=== PATIENT | female | born 1990 | race Caucasian/White ===

== ENCOUNTER 2021-01-05 17:29 | Emergency (ER) | payer OTHER ==
[2021-01-05 18:35] LABS: BASOPHIL 0.5 % (0-2); BILIRUBIN NEGATIVE (NEGATIVE); BLOOD NEGATIVE Ery/uL (NEGATIVE); CLARITY CLEAR (CLEAR); COLOR YELLOW (YELLOW); EOSINOPHIL 1.4 % (0-5); GLUCOSE (U) NORMAL (NORMAL); HCT 38.9 % (37.0-47.0); HGB 12.2 g/dl (12.5-16.0); LEUKOCYTES NEGATIVE Leu/uL (NEGATIVE); LYMPHOCYTE 25.2 % (15-48); MCH 26.8 pg (25.0-31.0); MCHC 31.4 g/dL (32.0-36.0); MCV 85.3 fL (78.0-100.0); MONOCYTE 5.4 % (0-12); MPV 9.8 fL (6.0-9.5); NEUTROPHIL 66.9 % (41-80); NITRITE NEGATIVE (NEGATIVE); NRBC 0; PLT 400 K/uL (150-400); PROTEIN NEGATIVE (NEGATIVE); RBC 4.56 M/uL (4.20-5.40); SPECIFIC GRAVITY >=1.030 (1.001-1.030); UROBILINOGEN 0.2 mg/dL (0.2-1.0); WBC 14.2 K/uL (4.0-10.5)
[2021-01-05 18:51] LABS: ALBUMIN 3.7 g/dL (3.4-5.0); BILIRUBIN - TOTAL 0.3 mg/dL (0.2-1.0); BUN/CREAT RATIO (CALC) 16.9 RATIO; CREATININE 0.65 mg/dL (0.51-0.95); GLOBULIN (CALCULATION) 3.8 g/dL; POTASSIUM 3.7 mmol/L (3.5-5.1); TOTAL PROTEIN 7.5 g/dL (6.4-8.2)
[2021-01-05 19:03] LABS: AMPHETAMINES NEGATIVE (NEGATIVE); BARBITURATES NEGATIVE (NEGATIVE); ECSTASY (MDMA) NEGATIVE (NEGATIVE); MARIJUANA (THC) NEGATIVE (NEGATIVE); METHADONE NEGATIVE (NEGATIVE); OPIATES NEGATIVE (NEGATIVE); OXYCODONE NEGATIVE (NEGATIVE)
[2021-01-05 19:29] LABS: LACTIC ACID 1.2 mmol/L (0.4-1.9)
[2021-01-05] MEDS ORDERED: BENTYL10 MG PO (20:12)
[2021-01-05] MEDS ORDERED: ZOFRAN4 M1 PO (20:12)
== END 2021-01-05 20:30 | disposition home or self-care (01) ==
LOC: FER 17:29
PROVIDERS: Nurse Practitioner Family
DX: R10.31 Right lower quadrant pain (principal); R10.32 Left lower quadrant pain; R11.0 Nausea; Z88.8 Allergy status to other drugs, medicaments and biological substances
CPT/HCPCS: 36415; 80053; 80305; 81003; 83605; 85025; J1885; J2405; J7030; Q9967